=== PATIENT | female | born 1970 | race Caucasian/White ===

== ENCOUNTER 2018-03-23 09:10 | Day surgery (SDC) | payer BC, MEDICAID, SELFPAY ==
[~2018-03-23] VITALS: Ht 162.6 cm; Wt 72.7 kg
[2018-03-23 09:53] LABS: BASO # 0.1 10^3/uL (0.0-0.2); BASO % 0.3 % (0.0-1.0); EOS % 0.2 % (0.0-3.0); HEMATOCRIT 43.5 % (36.0-47.0); HEMOGLOBIN 15.2 g/dl (12.0-15.5); LYMPH # 2.5 10^3/uL (1.5-4.5); LYMPH % 9.6 % (24.0-44.0); MEAN CORPUSCULAR HEMOGLOBIN 33.9 pg (27.0-33.0); MEAN CORPUSCULAR HGB CONC 34.9 g/dl (32.0-36.5); MEAN CORPUSCULAR VOLUME 97.1 fl (80.0-96.0); MONO % 8.4 % (0.0-5.0); NEUTROPHILS # 21.2 10^3/uL (1.8-7.7); NEUTROPHILS % 80.9 % (36.0-66.0); PLATELET COUNT, AUTOMATED 284 10^3/uL (150-450); RED BLOOD COUNT 4.48 10^6/uL (4.00-5.40); WHITE BLOOD COUNT 26.2 10^3/uL (4.0-10.0)
[2018-03-23 10:13] LABS: BLOOD UREA NITROGEN 9 MG/DL (7-18); CALCIUM LEVEL 9.4 MG/DL (8.5-10.1); CARBON DIOXIDE LEVEL 27 MEQ/L (21-32); CHLORIDE LEVEL 100 MEQ/L (98-107); CREATININE FOR GFR 0.69 MG/DL (0.55-1.30); GLOMERULAR FILTRATION RATE > 60.0 (>58); GLUCOSE, FASTING 125 MG/DL (70-100); POTASSIUM SERUM 3.9 MEQ/L (3.5-5.1); SODIUM LEVEL 137 MEQ/L (136-145)
--- NOTE | 2018-03-23 10:21 | REP ---
Urinary tract sonogram: History: Flank pain. Comparison: None. Findings: Scanning at the level of the urinary bladder shows no abnormality. It is essentially empty at the time of scanning. Renal cortical echogenicity pattern is normal bilaterally and contours are smooth. There is no evidence of hydronephrosis, cyst, mass, or calculus in either kidney. The right kidney measures 11.4 x 5.0 x 3.8 cm. Left renal dimensions are 11.9 x 4.3 x 5.8 cm. Impression: Normal urinary tract sonography. Electronically Signed by Dileep Perea MD 03/23/2018 10:13 A
[2018-03-23] MEDS ORDERED: NS 500 ML IV ONE (10:30)
[2018-03-23] MEDS ORDERED: ONDANSETRON 4MG/2ML VIAL (J2405) IV ONE (10:30)
[2018-03-23] MEDS ORDERED: MORPHINE 4 MG/ML 1ML VIAL/SYRINGE (J2270) IV ONE (10:30)
[2018-03-23] MEDS ORDERED: ISOVUE-370 76% 100ML VIAL (Q9967) As Ordered ONE (10:35)
[2018-03-23 11:14] LABS: MONO # 2.2 10^3/uL (0.0-0.8)
[2018-03-23] MEDS ORDERED: CIPROFLOXACIN 400 MG in APPROPRIATE DILUENT 1 EA IV ONE (12:30)
[2018-03-23] MEDS ORDERED: metroNIDAZOLE 500 MG in APPROPRIATE DILUENT 1 EA IV ONE (12:30)
--- NOTE | 2018-03-23 13:35 | REP ---
CT abdomen and pelvis with IV but without oral contrast: History: Right lower quadrant pain. Rule out appendicitis. No comparison imaging. CT contrast dose: 100 mL of intravenous Isovue [address] findings: Preliminary digital principal java developer radiograph is unremarkable. The lung bases are clear. The liver and the spleen are normal in size homogeneous in texture. Gallbladder is unremarkable. No pancreatic abnormality is observed. Normal adrenal glands are seen. The kidneys enhance symmetrically are morphologically intact bilaterally. No evidence of intrarenal calculus or hydronephrosis. The renal arteries are duplicated bilaterally. Heavy vascular calcification is noted. No retroperitoneal mass or adenopathy is seen. Left colonic diverticulosis is seen without evidence of diverticulitis. No uterine, adnexal or bladder abnormality is observed. The appendix is abnormal however with a fairly large appendicolith just beyond its origin from the cecum. The appendicolith measures 10 mm in diameter. The appendix is dilated and fluid-filled and inflamed. It measures up to 2.1 cm in diameter. There is periappendiceal streaking, mural thickening, and a small quantity of pericolic gutter fluid in the right lower quadrant. No abscess or free air is seen. Impression: Acute appendicitis with appendicolith, fluid distended inflamed appendix, periappendiceal fluid, without evidence of abscess or free air. Left colonic diverticulosis. Electronically Signed by Dileep Perea MD 03/23/2018 05:22 P
[2018-03-23] MEDS ORDERED: METOCLOPRAMIDE INJ 10MG/2ML VIAL (J2765) As Ordered ONE (14:33)
[2018-03-23] MEDS ORDERED: ONDANSETRON 4MG/2ML VIAL (J2405) As Ordered ONE (14:33)
[2018-03-23] MEDS ORDERED: PROPOFOL 200 MG/20 ML VIAL As Ordered ONE (14:33)
[2018-03-23] MEDS ORDERED: ROCURONIUM BROMIDE 50 MG/5 ML VIAL As Ordered ONE (14:33)
[2018-03-23] MEDS ORDERED: fentaNYL 100 MCG/2 ML INJECTION (J3010) As Ordered ONE ×2 (14:33→16:20)
[2018-03-23] MEDS ORDERED: MIDAZOLAM INJ 2 MG/2 ML VIAL (J2250) As Ordered ONE (14:33)
[2018-03-23] MEDS ORDERED: LIDOCAINE 2% INJ 100 MG/5 ML SDV (FOR ANES.) As Ordered ONE (14:33)
[2018-03-23] MEDS ORDERED: BUPIVACAINE/EPIN 0.25% 30 ML VIAL As Ordered ONE (14:35)
[2018-03-23] MEDS ORDERED: dexameTHASONE 4 MG/ML 1ML VIAL (J1100) As Ordered ONE (15:57)
[2018-03-23] MEDS ORDERED: KETOROLAC 60 MG/2 ML VIAL (J1885) As Ordered ONE (16:26)
[2018-03-23] MEDS ORDERED: NEOSTIGMINE 10 MG/10 ML VIAL (J2710) As Ordered ONE (16:28)
[2018-03-23] MEDS ORDERED: GLYCOPYRROLATE INJ 0.2 MG/ML 2 ML VIAL As Ordered ONE (16:28)
[2018-03-23] MEDS ORDERED: METOCLOPRAMIDE INJ 10MG/2ML VIAL (J2765) IV PRN ×2 (16:45→17:00)
[2018-03-23] MEDS ORDERED: ONDANSETRON 4MG/2ML VIAL (J2405) IV PRN ×2 (16:45→17:00)
[2018-03-23] MEDS ORDERED: ACETAMINOPHEN TAB 650MG DOSE (2X325MG) PO PRN (16:45)
[2018-03-23] MEDS ORDERED: PROMETHAZINE INJ 25 MG/ML VIAL (J2550) IV PRN (16:45)
[2018-03-23] MEDS ORDERED: LR 1,000 ML IV SCH (17:00)
[2018-03-23] MEDS ORDERED: fentaNYL 100 MCG/2 ML INJECTION (J3010) IV PRN (17:00)
[2018-03-23] MEDS ORDERED: PERCOCET 5MG/325MG TAB PO PRN (17:00)
[2018-03-23] MEDS ORDERED: MEPERIDINE INJ 25 MG/ML VIAL (J2175) IV PRN (17:00)
[2018-03-23] MEDS: MORPHINE 4 MG/ML 1ML VIAL/SYRINGE (J2270) IV PRN (17:05)
[2018-03-23 18:00] VITALS: BP 143/64
[2018-03-23] MEDS: NS 1,000 ML IV SCH (18:05)
[2018-03-23 18:30] VITALS: BP 133/64
[2018-03-23 19:30] VITALS: BP 127/66
[2018-03-23 20:27] VITALS: BP 110/58
[2018-03-23 21:37] VITALS: BP 115/58
[2018-03-23] MEDS: metroNIDAZOLE 500 MG in APPROPRIATE DILUENT 1 EA IV SCH (21:43)
[2018-03-23 22:28] VITALS: BP 116/57
[2018-03-23] MEDS: NORCO, ANEXSIA 5/325MG TABLET (HYDROcodone/ACETAMINOPHEN) PO PRN (22:37)
[2018-03-24] MEDS: CIPROFLOXACIN 400 MG in APPROPRIATE DILUENT 1 EA IV SCH ×2 (00:13→12:39)
[2018-03-24] MEDS: KETOROLAC 30 MG/ML VIAL (J1885) IV SCH ×4 (00:13→18:14)
[2018-03-24 00:23] VITALS: BP 104/52
[2018-03-24] MEDS: NS 1,000 ML IV SCH ×3 (02:24→22:05)
[2018-03-24 04:13] VITALS: BP 112/59
[2018-03-24] MEDS: metroNIDAZOLE 500 MG in APPROPRIATE DILUENT 1 EA IV SCH ×3 (05:39→18:14)
[2018-03-24 08:00] VITALS: BP 110/56
[2018-03-24] MEDS: PANTOPRAZOLE 40MG TAB (PROTONIX) PO SCH (08:42)
--- NOTE | 2018-03-24 10:41 | RO ---
DATE OF PROCEDURE: 03/23/2018 PREOPERATIVE DIAGNOSIS: Acute appendicitis POSTOPERATIVE DIAGNOSIS: Acute appendicitis (localized perforation). PROCEDURE: Laparoscopic appendectomy. SURGEON: Esdras Gautam MD [employer] [place] [place]: ANESTHESIA: General endotracheal anesthesia. ESTIMATED BLOOD LOSS (EBL): Minimal. FLUIDS: Crystalloid. BRIEF PROCEDURE SUMMARY: The patient was taken to the operating room and was given general anesthesia. After adequate anesthesia and preoperative antibiotics were given, the patient was prepped and draped in the usual sterile fashion. Next, a supraumbilical incision was made with skin knife. Blunt dissection was carried down to fascia. Fascia was grasped with Esau clamps, elevated and a Veress needle placed into the abdominal cavity, insufflated to 15 mm pressure. A dilating 10 mm trocar was placed at this time and under direct visualization a suprapubic and left lower quadrant 5 mm trocars were placed and the appendix was seen on the right-hand side. There was some inflammatory changes and a little bit of purulent discharge in the pelvis, and thus, the cecum was grasped and moved medially and when doing this there was some purulent discharge and then some fecal on discharge. It was obvious there was a obvious perforation of the appendix in mid portion. At this point, the appendiceal base looked free and clear of inflammatory changes. Thus, the mesentery was opened at this site with Harmonic and then followed along the appendix distally with the Harmonic scalpel. The base of the appendix was transected using a CANDELARIA stapler, placed in an Endo Catch bag and brought out through the umbilicus. The pelvis, the right lower quadrant was copiously irrigated with multiple liters of fluid, and after I felt this was quite clean all trocars were removed under direct visualization. #0 Vicryl was used to close the fascia at the umbilicus and all incisions were closed with #4-0 Vicryl. Steri-Strips and a dry sterile dressing was applied. The patient was awakened, extubated and brought to the recovery room awake, alert, hemodynamically stable. Sponge and needle counts were correct times two.
--- NOTE | 2018-03-24 10:47 | HPE ---
DATE OF ADMISSION: 03/23/2018 CHIEF COMPLAINT: Acute appendicitis. BRIEF HISTORY OF PRESENT ILLNESS: Patient is a 47-year-old female, who has had a 2-day history of abdominal pain, discomfort and well localized to the right lower quadrant for the last 24-36 hours. It has gotten worse over the last day and she has had difficulty moving around. She has had some nausea without vomiting. No diarrhea, no constipation issues, but has been unable to eat because of anorexia issues. She has had this severe pain that has been persistent for a while now, came to the Urgent Care and then transferred here to the hospital for evaluation of acute appendicitis. Her white count was elevated to 26,000. She had right lower quadrant pain and tenderness and referred to the emergency room here where they underwent a CAT scan, which revealed acute appendicitis. Past medical history is significant for a history of wrist surgery as well as tubal ligation. Medications are none. ALLERGIES are NONE. Physical exam reveals a 47-year-old female, who looks stated age. HEENT is unremarkable. Neck: Supple without adenopathy. Lungs are clear to auscultation without crackles, wheezes or rhonchi. Heart is regular without murmur. Abdomen is soft, nondistended, but she is tender with guarding and rebound in the right lower quadrant and referred rebound in this area as well. Extremities are warm, well-perfused. IMPRESSION AND PLAN: Patient has acute appendicitis. At this point, there is not a significant amount of free fluid in the pelvis. There does not seem to be an abscess around the appendix; however, it is significantly inflamed and given the elevated white count I do feel that this is advanced acute appendicitis. At this point, we will plan on a laparoscopic appendectomy. Risks as well as benefits have been discussed with the patient at length, those including but not limited to infection, bleeding, damage to surrounding structures including bowel, bladder, nerve, vessels and possible need for open operative intervention. The patient understands and would like to proceed with this as soon as possible.
--- NOTE | 2018-03-24 10:50 | IPN ---
DATE: 03/24/2018 Patient overall has been doing well overnight. Has not had any complaints. No nausea. No vomiting. Has been tolerating a clear liquid diet and started on some minimal fluid this morning but not a lot. Has been afebrile overnight, although last night had a little bit of a temperature right after she came out of the operating room (OR). She has had good urine output and has had no complaints of diarrhea or constipation, and no nausea or vomiting. Overall is comfortable with the current pain medication regime. On her physical exam, her dressings are clean and dry. Her abdomen is nondistended. IMPRESSION AND PLAN: Patient seems to be doing well status post laparoscopic appendectomy. We will see how she does after lunch and if she is tolerating a regular diet will discharge her to home with instructions to followup in 2 weeks. Otherwise, if she is not tolerating a diet or if she is having fevers, again we may keep her overnight for another day and then discharge her to home tomorrow. She understands, and we will see how she is doing this afternoon.
[2018-03-24 12:00] VITALS: BP 120/58
[2018-03-24] MEDS: MORPHINE 4 MG/ML 1ML VIAL/SYRINGE (J2270) IV PRN (12:56)
[2018-03-24 16:00] VITALS: BP 110/59
[2018-03-24] MEDS: NORCO, ANEXSIA 5/325MG TABLET (HYDROcodone/ACETAMINOPHEN) PO PRN (16:41)
[2018-03-24 20:00] VITALS: BP 107/54
[2018-03-25] VITALS: BP 110/58
[2018-03-25] MEDS: KETOROLAC 30 MG/ML VIAL (J1885) IV SCH ×3 (00:43→12:00)
[2018-03-25] MEDS: CIPROFLOXACIN 400 MG in APPROPRIATE DILUENT 1 EA IV SCH ×2 (00:43→12:45)
[2018-03-25] MEDS: metroNIDAZOLE 500 MG in APPROPRIATE DILUENT 1 EA IV SCH ×2 (02:13→09:29)
[2018-03-25 04:00] VITALS: BP 120/55
[2018-03-25 08:00] VITALS: BP 125/58
[2018-03-25] MEDS: PANTOPRAZOLE 40MG TAB (PROTONIX) PO SCH (09:29)
[2018-03-25 12:20] VITALS: BP 123/64
[2018-03-25 12:24] LABS: BASO % 0.2 % (0.0-1.0); EOS # 0.1 10^3/uL (0.0-0.50); EOS % 0.5 % (0.0-3.0); HEMATOCRIT 31.5 % (36.0-47.0); LYMPH # 1.3 10^3/uL (1.5-4.5); LYMPH % 7.5 % (24.0-44.0); MEAN CORPUSCULAR HEMOGLOBIN 34.3 pg (27.0-33.0); MEAN CORPUSCULAR HGB CONC 34.9 g/dl (32.0-36.5); MEAN CORPUSCULAR VOLUME 98.1 fl (80.0-96.0); MONO # 1.1 10^3/uL (0.0-0.8); MONO % 6.4 % (0.0-5.0); NEUTROPHILS # 14.3 10^3/uL (1.8-7.7); NEUTROPHILS % 84.7 % (36.0-66.0); PLATELET COUNT, AUTOMATED 207 10^3/uL (150-450); RED BLOOD COUNT 3.21 10^6/uL (4.00-5.40); WHITE BLOOD COUNT 16.9 10^3/uL (4.0-10.0)
[2018-03-25 12:47] LABS: BLOOD UREA NITROGEN 8 MG/DL (7-18); CALCIUM LEVEL 7.8 MG/DL (8.5-10.1); CARBON DIOXIDE LEVEL 25 MEQ/L (21-32); CHLORIDE LEVEL 99 MEQ/L (98-107); GLOMERULAR FILTRATION RATE > 60.0 (>58); GLUCOSE, FASTING 100 MG/DL (70-100); SODIUM LEVEL 132 MEQ/L (136-145)
[2018-03-25] MEDS ORDERED: CIPR500T3 PO (13:28)
[2018-03-25] MEDS ORDERED: FLAG500T PO (13:28)
--- NOTE | 2018-03-25 13:44 | IPN ---
DATE: 03/25/2018 HISTORY: The patient is now postop day 2 from laparoscopic appendectomy for a perforated appendicitis. This was done by Dr. Gautam. She has been on ciprofloxacin and Flagyl in the hospital. She had no labs yesterday but had a CBC today that shows a white count of 17,000 with 85% neutrophils, 7% lymphocytes, 6% monocytes. Vital signs show that she has had a low grade temperature this morning up to maximum 99.9. Her pulse has been running in the 100-125 range today, which is up from the 80s to 90s yesterday. She has not been taking any pain medications. Intake and output yesterday: She had 5500 in with 600 recorded out though I suspect that her urine output was higher than what was recorded. Today her urine output has been over a liter so far. Physical examination reveals a pleasant woman lying quietly on the hospital bed. She is alert and oriented. Her heart rate is in the 92-100 range and regular. Lungs are clear. The abdomen is mildly protuberant. She has some bowel sounds present. She has dressings on three small incisions in the lower abdomen. There is no tenderness to percussion. There is no undue tenderness to palpation. There is no evidence of redness around her incisions. Laboratory studies as noted showed a white count of 17,000 with 85% neutrophils. Her basic medical profile showed a sodium of 132, otherwise normal electrolytes with a glucose of 100. IMPRESSION: The patient is now 2 days postop from laparoscopic appendectomy for perforated appendicitis. She still has a elevated white blood cell count with a significant left shift. She has had a low grade temperature but otherwise reports that she is feeling well. PLAN: I have recommended to the patient that she remain in the hospital and continue her IV antibiotics. She indicates that she feels well and she wishes to go home. I advised her that there is a chance that she will develop an abscess or may already be developing an abscess related to her perforation and she reports that she understands this possibility. I advised her that even with the antibiotics, this may not be prevented and she would then need further treatment. Again she seems to understand this possibility, but feels that she will be better at home. I counseled her that we will continue her on antibiotics with ciprofloxacin and Flagyl. She will need to call for an appointment with Dr. Gautam in about a week for followup. I advised her that if she develops a fever or chills or has increasing abdominal pain or develops nausea or vomiting or sees redness around her wounds that she should certainly contact our office or return to the emergency department for followup. It is certainly possible that she will develop an abscess and require further treatment. She appears to understand this risk and agrees to return if she notes any developing problems. I otherwise counseled her to avoid any strenuous physical activity. She can shower as desired and should remove the small dressings from her incisions in about 5 days after surgery. She can take [id number] pain medications as necessary. JORDYN
== END 2018-03-25 15:40 | disposition home or self-care (01) ==
LOC: M ED 09:10 → M SDC 12:00 → M PED 17:55 → M SDC 03-25 15:40
PROVIDERS: ATTEND Surgery
DX: K35.32 Acute appendicitis with perforation, localized peritonitis, and gangrene, without abscess (principal); Z88.0 Allergy status to penicillin; Z72.0 Tobacco use; Z98.51 Tubal ligation status
CPT/HCPCS: 36415; 44970; 74177; 76775; 80048; 81001; 85025; 88304; 96365; 96366; 96374; 96375; 96376; 99284; J0744; J1100; J1885; J2250; J2270; J2405; J2710; J2765; J3010; Q9967

== ENCOUNTER → 2019-02-06 | Outpatient (REF) | payer OTHER ==
[~2019-02-06] MED LIST: CIPR500T3 PO; FLAG500T PO
[2019-02-06 13:22] LABS: BASO # 0.1 10^3/uL (0.0-0.2); BASO % 0.6 % (0.0-1.0); EOS # 0.3 10^3/uL (0.0-0.5); EOS % 2.7 % (0.0-3.0); HEMOGLOBIN 15.4 g/dl (12.0-15.5); LYMPH # 3.1 10^3/uL (1.5-5.0); LYMPH % 30.5 % (24.0-44.0); MEAN CORPUSCULAR HEMOGLOBIN 33.8 pg (27.0-33.0); MEAN CORPUSCULAR HGB CONC 32.1 g/dl (32.0-36.5); MEAN CORPUSCULAR VOLUME 105.5 fl (80.0-96.0); MONO # 0.8 10^3/uL (0.0-0.8); MONO % 7.5 % (0.0-5.0); NEUTROPHILS % 58.4 % (36.0-66.0); PLATELET COUNT, AUTOMATED 270 10^3/uL (150-450); RED BLOOD COUNT 4.55 10^6/uL (4.00-5.40); WHITE BLOOD COUNT 10.2 10^3/uL (4.0-10.0)
[2019-02-06 14:10] LABS: ALT/SGPT 14 U/L (12-78); BILIRUBIN,TOTAL 0.3 MG/DL (0.2-1.0); BLOOD UREA NITROGEN 12 MG/DL (7-18); CALCIUM LEVEL 9.5 MG/DL (8.5-10.1); CARBON DIOXIDE LEVEL 28 MEQ/L (21-32); CHLORIDE LEVEL 105 MEQ/L (98-107); CHOLESTEROL LEVEL 302 MG/DL (<200); CHOLESTEROL RISK RATIO 4.081 (<5); CREATININE FOR GFR 0.75 MG/DL (0.55-1.30); GLOMERULAR FILTRATION RATE > 60.0 (>58); GLUCOSE, FASTING 92 MG/DL (70-100); HDL CHOLESTEROL 74 MG/DL (>40); LDL CHOLESTEROL 202 MG/DL (<100); NON-HDL-C 228 MG/DL; POTASSIUM SERUM 4.1 MEQ/L (3.5-5.1); SODIUM LEVEL 139 MEQ/L (136-145); THYROID STIMULATING HORMONE 0.883 uIU/ML (0.358-3.740); TOTAL PROTEIN 7.3 GM/DL (6.4-8.2); TRIGLYCERIDES LEVEL 132 MG/DL (<150)
== END ==
LOC: M SFHCADAM 10:10
PROVIDERS: ATTEND Family Medicine
DX: Z00.00 Encounter for general adult medical examination without abnormal findings (principal)

== ENCOUNTER → 2019-03-12 | Outpatient (REF) | payer OTHER ==
[2019-03-12 17:38] LABS: FOLATE 11.5 NG/ML; TOTAL 25(OH) VITAMIN D 24.6 NG/ML (30.0-100.0)
== END ==
LOC: M SFHCADAM 14:56
PROVIDERS: ATTEND Family Medicine
DX: D75.89 Other specified diseases of blood and blood-forming organs (principal); R53.83 Other fatigue

== ENCOUNTER → 2019-03-30 | Outpatient (CLI) | payer OTHER ==
--- NOTE | 2019-03-30 11:29 | REP ---
BILATERAL MAMMOGRAM WITH 3D TOMOSYNTHESIS, LEFT AXILLARY ULTRASOUND: CLINICAL HISTORY: Left axillary pain. No palpable lump. Family history of breast cancer in mother and paternal aunt. [facility] lifetime risk of breast cancer 23.9%. COMPARISON: 01/22/2014 and 11/29/2012. Bilateral mammogram performed in the MLO and CC projections with 3D tomosynthesis. Mild scattered fibroglandular tissue appears unchanged since the prior studies with no new mass. There are no clustered microcalcifications. Normal appearing axillary lymph nodes are present. Real-time sonographic evaluation of the left axillary region performed. There appear to be two morphologically normal lymph nodes in the left axillary region, both demonstrating fatty anson. Short axis dimension of each is 7 and 9 mm. No other cyst is or solid nodule is seen. IMPRESSION: BIRADS 2: BI-RADS/ACR category 2 mammogram. Benign Findings. ACR 2 benign. No suspicious mass or clustered microcalcifications. In the region of the left axillary pain two normal-appearing lymph nodes are seen. Given the patient's elevated lifetime risk of breast cancer of 23.9%, I would recommend supplemental screening MRI of the breasts in 6 months. This mammogram was interpreted with the aid of an FDA-approved computer-aided detection system. A. Negative x-ray reports should not delay biopsy if a dominant or clinically suspicious mass is present. B. Four to eight percent of cancers are not identified by x-ray. C. Adenosis and dense breasts may obscure an underlying neoplasm. The patient states she/he had a clinical breast exam in January 2019. The patient letter being requested is M2 Electronically Signed by Luke Ramirez MD 03/30/2019 12:57 P
== END ==
LOC: M RAD 08:58
PROVIDERS: ATTEND Family Medicine
DX: M79.622 Pain in left upper arm (principal); Z80.3 Family history of malignant neoplasm of breast
CPT/HCPCS: 76642; 77066; G0279

== ENCOUNTER 2020-09-13 00:56 | Emergency (ER) | payer OTHER, SELFPAY ==
[~2020-09-13] VITALS: Ht 162.6 cm; Wt 90.0 kg
[2020-09-13] MEDS ORDERED: KETOROLAC 30 MG/ML 1ML VIAL IV ONE (03:55)
--- NOTE | 2020-09-13 04:05 | REPVR ---
PROCEDURE INFORMATION: Exam: XR Left Ankle Exam date and time: 09/13/2020 2:06 AM Age: 49 years old Clinical indication: Other: Fall TECHNIQUE: Imaging protocol: XR Left ankle. Views: 3 or more views. COMPARISON: No relevant prior studies available. FINDINGS: Bones/joints: There is an oblique fracture of the distal fibula, beginning at approximately the ankle joint line. There are a few mm of posterior displacement of the distal fragment relative to the proximal fibula. There is a fracture of the distal tibia involving the medial malleolus, with a minimally displaced, predominantly vertical fracture. A small fracture fragment seen posteriorly on the lateral view may be an additional posterior tibial fracture or may be a component of the fracture that involves the medial malleolus. The ankle mortise is grossly symmetric. There is a plantar calcaneal spur. Soft tissues: There is circumferential soft tissue swelling. IMPRESSION: Fractures of the medial and lateral malleolus and possibly a small fracture involving the posterior aspect of the distal tibia as well. Electronically signed by: Pooja Danielson On 09/13/2020 04:04:23 AM
[2020-09-13] MEDS ORDERED: IBUP-1022 PO (05:49)
[2020-09-13 07:04] VITALS: BP 158/64
== END 2020-09-13 07:06 | disposition home or self-care (01) ==
LOC: M ED 00:56
DX: S82.845A Nondisplaced bimalleolar fracture of left lower leg, initial encounter for closed fracture (principal); W19.XXXA Unspecified fall, initial encounter; Y92.019 Unspecified place in single-family (private) house as the place of occurrence of the external cause; Y93.9 Activity, unspecified; Y99.8 Other external cause status; F10.120 Alcohol abuse with intoxication, uncomplicated; F17.200 Nicotine dependence, unspecified, uncomplicated; Z88.0 Allergy status to penicillin

== ENCOUNTER → 2020-09-22 | Outpatient (CLI) | payer MEDICAID ==
[~2020-09-22] MED LIST changes: +IBUP-1022 PO; +TYLE650T38 PO
--- NOTE | 2020-09-22 08:29 | REP ---
INDICATION: LT ANKLE DISPLACED FX. COMPARISON: X-ray 09/13/2020 TECHNIQUE: Axial soft tissue and bone windows with both coronal and sagittal bone window reconstructions provided through the ankle and hindfoot. Cast material overlies. FINDINGS: Vertically oriented oblique horizontal fractures of the posterior aspect of the medial malleolus coursing into the posterior malleolus transversely. Is only mildly distracted. Does have articular communication to the posteromedial aspect of the mortise joint. There is a transverse oblique fracture through the distal fibular metaphysis communicating to the posterolateral mortise joint. There are few small the fragments adjacent to the fracture site and 1 or 2 in the lateral anteromedial of the mortise joint. There is distraction of the distal major fragment of the fibula up to 3.7 mm with 1/4 shaft with posterior displacement. No other fractures the talus is without a talar dome osteochondral defect. Calcaneus is unremarkable. There is a plantar calcaneal spur. Subtalar joints, tarsal bones and their articulations were all intact.. IMPRESSION: 1. Mildly comminuted distal medial malleolar fracture transverse oblique and communicating to the anteromedial corner of the lateral aspect of the ankle mortise joint couple small ossific fragments appear to be intra-articular. 2. Medial malleolar fracture extending transverse fashion along the posterior aspect of the distal tibia as well. No other significant finding <Electronically signed by Steve Armenta > 09/22/20 [id number]
== END ==
LOC: M RAD 07:14
PROVIDERS: ATTEND Orthopaedic Surgery Sports Medicine
DX: S82.842A Displaced bimalleolar fracture of left lower leg, initial encounter for closed fracture (principal); X58.XXXA Exposure to other specified factors, initial encounter; Y92.9 Unspecified place or not applicable

== ENCOUNTER 2020-09-24 10:35 | Day surgery (SDC) | payer MEDICAID ==
[~2020-09-24] VITALS: Ht 162.6 cm; Wt 58.1 kg
[~2020-09-24 10:35] MED LIST changes: +CLINDAMYCIN 600 MG in IV 1 EA IV ONE; +LIDOCAINE 1% MDV 20ML VIAL SQ PRN; +LR 1,000 ML IV ONE
[2020-09-24] MEDS ORDERED: LIDOCAINE 2% 100MG/5ML SDV (FOR ANES.) As Ordered ONE (10:44)
[2020-09-24] MEDS ORDERED: propofoL 200 MG/20 ML VIAL As Ordered ONE (10:44)
[2020-09-24] MEDS ORDERED: MIDAZOLAM INJ 2MG/2ML VIAL (J2250 PER 1MG) As Ordered ONE (10:44)
[2020-09-24] MEDS ORDERED: dexameTHASONE 4 MG/ML 1ML VIAL (J1100 PER 1MG) As Ordered ONE (10:44)
[2020-09-24] MEDS ORDERED: ONDANSETRON 4MG/2ML VIAL As Ordered ONE (10:44)
[2020-09-24] MEDS ORDERED: fentaNYL 100 MCG/2 ML INJECTION (J3010) As Ordered ONE (10:44)
--- NOTE | 2020-09-24 13:10 | REP ---
INDICATION: LEFT ANKLE FRACTURE. COMPARISON: Comparison radiographs of the left ankle are from September 13, 2020.. TECHNIQUE: Three views. 38.8 seconds of fluoroscopy time is reported. FINDINGS: A a sequence of 3 last image hold fluoroscopically obtained spot radiographs of the left ankle document open reduction internal fixation of left ankle fracture. Screw plate fixation device in the distal fibula. IMPRESSION: Procedural imaging. <Electronically signed by Diogo Perea > 09/24/20 [id number]
[2020-09-24] MEDS ORDERED: ONDANSETRON 4MG/2ML VIAL IV PRN ×2 (13:20→13:30)
[2020-09-24] MEDS ORDERED: oxyCODONE 5MG TAB PO PRN (13:20)
[2020-09-24] MEDS ORDERED: fentaNYL 100 MCG/2 ML INJECTION (J3010) IV PRN (13:20)
[2020-09-24] MEDS ORDERED: LR 1,000 ML IV SCH ×2 (13:20)
[2020-09-24] MEDS ORDERED: PERCOCET 5MG/325MG TAB PO PRN (13:25)
[2020-09-24] MEDS ORDERED: MORPHINE 2 MG/ML 1ML VIAL (J2270) IV PRN (13:25)
[2020-09-24] MEDS ORDERED: ACETAMINOPHEN TAB 650MG DOSE (2X325MG) PO PRN (13:25)
--- NOTE | 2020-09-24 13:28 | ROOPDOC ---
[facility] Report Of Operation Report of Operation DATE OF PROCEDURE: 09/24/20 PREPROCEDURE DIAGNOSES: Left ankle fracture. POSTPROCEDURE DIAGNOSES: Same. PROCEDURE PERFORMED: Left ankle open reduction internal fixation. SURGEON: Dr. Estefany English MD [employer] CARR[employer] OUT: ANESTHESIA: Spinal anesthetic Dr Guevara. ESTIMATED BLOOD LOSS: Approximately 50 mL. COMPLICATIONS: None. REMARKS: FINDINGS: Left ankle fracture SPECIMENS REMOVED: None PROCEDURE NOTE: This 49-year-old female sustained an unstable bimalleolar ankle fracture. We discussed the pros and cons risks and benefits of nonsurgical versus surgical management. She wished to go ahead. I marked the left lower extremity and proceeded to surgery. She had no further questions. DESCRIPTION OF PROCEDURE: The patient was brought to the operating theater. They are ministered clindamycin 600 mg IV for penicillin allergy and for surgical prophylaxis. The patient was administered spinal anesthetic. They are placed supine on the operating room table. Bump under the left hip 34 inch tourniquet applied appropriately padded. Bone foam leg positioner was used. All bony prominences padded. Sequential device on the opposite leg. Limb was prepped and draped in the usual sterile fashion allowing over 3 minutes drying time prior to draping (chlorhexidine-based prep solution). Preoperative timeout was performed to confirm the site patient and surgery. Began by elevating the limb inflating the tourniquet to 250 mmHg. I made a standard lateral incision over the distal aspect of fibula. I carried the dissection down through skin and subcutaneous tissue achieve meticulous hemostasis. Identified the fracture. I cleared away any interposed fracture hematoma and periosteum. I achieved preliminary reduction with pointed reduction forceps. I placed a 2.7 mm fully threaded cortical lag screw across t he fracture countersinking proximally. I drilled from proximal anteriorly to distal posteriorly. This achieved good compression of the fracture site. I then precontoured an 8 hole one third tubular plate placed this on the lateral side of the cortex. I used 4 fully threaded cortical screws proximally as well as two 4.0 mm fully threaded cancellous screws distally. I then performed a syndesmosis stress test with the foot in external rotation at neutral as well as a cotton test. Syndesmosis did appear slightly unstable. The posterior medial distal tibia fracture was congruent. Due to the fracture location at the posterior inferior tibiofibular ligament as well as slight syndesmosis widening elected to put one fully threaded 3.5 mm cortical screw across all 4 cortices at the syndesmosis for fixation of the syndesmosis. I ensured to not over tighten this and had the foot in neutral when placing the screw. Unable to place 2 screws due to lag screw location. Final radiographs were taken AP lateral mortise confirm proper and anatomic reduction. These were saved onto the system. Case terminated. Tourniquet let down. Meticulous hemostasis achieved. Subcutaneous tissue irrigated with normal saline. Subcutaneous tissue closed with interrupted 2-0 Vicryl sutures and skin with running 3-0 Monocryl followed by cleansing the skin with wet and dry dressing and Steri-Strip application. Adaptic 4 by 4 gauze abdominal pad dressing and then sterile cast padding placed in a below-knee circumferential fashion with a 3 sided plaster Samantha splint overwrapped with 6 inch Morris bandages allowed to fully harden with the foot in neutral. Patient was transferred off the operating table taken postanesthetic care unit in stable condition. All sponge needle instrument counts correct no complications estimated blood loss 50 cc. Plan for the patient nonweightbearing for 6 weeks follow-up in the office 2 weeks time be discharged home according to when they are comfortable and safe mobilizing with crutches. Rest elevate ice the foot as well as pain prescription has been sent into their pharmacy of choice electronically [facility] [address]. Postoperative wound instructions were given. It was recommended to keep the wound clean and dry. Dressing changes as needed. It was reinforced with the patient that they should call us or be seen immediately for redness, drainage, or fever. Risk factors for harms from taking opioid medications discussed and assessed including but not limited to personal or family history of substance use diso rder, anxiety or depression, , age 65 or older, COPD or other underlying respiratory conditions, and renal or hepatic insufficiency. Discussed with patient concerns and determined any harms they may experience or be currently experiencing such as nausea or constipation, feeling sedated or confused, breathing interruptions during sleep, or taking or craving more opioids than prescribed or difficulty controlling use (addiction). Discussed early warning signs of overdose including confusion, sedation, slurred speech, abnormal gait. ESTEFANY ENGLISH MD Sep 24, 2020 13:27
[2020-09-24 15:35] VITALS: BP 172/81
== END 2020-09-24 15:50 | disposition home or self-care (01) ==
LOC: M SDC 10:35
PROVIDERS: ATTEND Orthopaedic Surgery Sports Medicine
DX: S82.842A Displaced bimalleolar fracture of left lower leg, initial encounter for closed fracture (principal); X58.XXXA Exposure to other specified factors, initial encounter; Y92.89 Other specified places as the place of occurrence of the external cause; Y93.9 Activity, unspecified; Y99.9 Unspecified external cause status; Z88.0 Allergy status to penicillin; F17.218 Nicotine dependence, cigarettes, with other nicotine-induced disorders
CPT/HCPCS: 27814; 76000; 87798; C1713; J1100; J2250; J2405; J3010

== ENCOUNTER → 2020-10-07 | Outpatient (CLI) | payer MEDICAID ==
[~2020-10-07] MED LIST changes: -CLINDAMYCIN 600 MG in IV 1 EA IV ONE; -LIDOCAINE 1% MDV 20ML VIAL SQ PRN; -LR 1,000 ML IV ONE
--- NOTE | 2020-10-07 15:59 | REP ---
INDICATION: ORTHO AFTERCARE. COMPARISON: None. TECHNIQUE: Three views FINDINGS: Postoperative changes after internal fixation trimalleolar ankle fracture. Hardware in satisfactory positions. Alignment normal. IMPRESSION: Normal postoperative changes. <Electronically signed by Raulito Chavis > 10/07/20 [id number]
== END ==
LOC: M SOG 15:29
PROVIDERS: ATTEND Orthopaedic Surgery Sports Medicine
DX: Z47.89 Encounter for other orthopedic aftercare (principal); Z87.81 Personal history of (healed) traumatic fracture

== ENCOUNTER → 2020-11-07 | Outpatient (CLI) | payer MEDICAID ==
--- NOTE | 2020-11-07 12:15 | REP ---
INDICATION: LT ANKLE FX. COMPARISON: 10/07/2020 TECHNIQUE: Three views FINDINGS: There is no evidence of an acute fracture or destructive osseous lesion. The mortise is within normal limits. There is no significant change from the prior exam. Status post ORIF with internal fixation plate and screws. IMPRESSION: No significant change <Electronically signed by Chele Sheridan > 11/07/20 [id number]
== END ==
LOC: M SOG 11:50
PROVIDERS: ATTEND Orthopaedic Surgery Sports Medicine
DX: S82.842D Displaced bimalleolar fracture of left lower leg, subsequent encounter for closed fracture with routine healing (principal); X58.XXXD Exposure to other specified factors, subsequent encounter; Y92.9 Unspecified place or not applicable; Y93.9 Activity, unspecified; Y99.9 Unspecified external cause status

== ENCOUNTER → 2021-03-23 | Outpatient (CLI) | payer OTHER | LOC: M SOG 08:38 | PROVIDERS: ATTEND Orthopaedic Surgery Sports Medicine | DX: Z47.89 Encounter for other orthopedic aftercare (principal) ==

== ENCOUNTER → 2022-10-04 | Outpatient (CLI) | payer OTHER ==
[2022-10-04 18:43] LABS: HEMATOCRIT 41.3 % (36.0-47.0); MEAN CORPUSCULAR HGB CONC 33.9 g/dl (32.0-36.5); MEAN CORPUSCULAR VOLUME 100.2 fl (80.0-96.0); PLATELET COUNT, AUTOMATED 257 10^3/uL (150-450); RED BLOOD COUNT 4.12 10^6/uL (4.00-5.40); WHITE BLOOD COUNT 10.4 10^3/uL (4.0-10.0)
[2022-10-04 18:57] LABS: ERYTHROCYTE SEDIMENTATION RATE 26 mm/hr (0-30)
[2022-10-04 19:11] LABS: ALBUMIN 3.9 G/DL (3.2-5.2); ALKALINE PHOSPHATASE 64 U/L (46-116); ALT/SGPT 12 U/L (7.0-40); AST/SGOT 12 U/L (<34); BILIRUBIN,TOTAL 0.3 MG/DL (0.3-1.2); BLOOD UREA NITROGEN 12 MG/DL (9-23); CALCIUM LEVEL 9.3 MG/DL (8.5-10.1); CARBON DIOXIDE LEVEL 27 MMOL/L (20-31); CHLORIDE LEVEL 102 MMOL/L (98-107); CREATININE FOR GFR 0.71 MG/DL (0.55-1.30); GLOMERULAR FILTRATION RATE > 60.0 (>51); GLUCOSE, FASTING 95 MG/DL (60-100); POTASSIUM SERUM 3.7 MMOL/L (3.5-5.1); SODIUM LEVEL 139 MMOL/L (136-145); TOTAL PROTEIN 6.8 G/DL (5.7-8.2)
[2022-10-04 19:14] LABS: FREE T4 1.22 NG/DL (0.89-1.76)
[2022-10-04 19:15] LABS: THYROID STIMULATING HORMONE 2.032 uIU/ML (0.55-4.78)
== END ==
LOC: M LAB 17:15
PROVIDERS: ATTEND Nurse Practitioner Family
DX: R21 Rash and other nonspecific skin eruption (principal)

== ENCOUNTER → 2023-02-04 | Outpatient (CLI) | payer OTHER | LOC: M RAD 14:29 | PROVIDERS: ATTEND Family Medicine | DX: Z12.2 Encounter for screening for malignant neoplasm of respiratory organs (principal); Z87.891 Personal history of nicotine dependence; R91.1 Solitary pulmonary nodule ==

== ENCOUNTER → 2023-07-12 | Outpatient (CLI) | payer OTHER | LOC: M SOG 07:50 | PROVIDERS: ATTEND Physician Assistant | DX: M79.645 Pain in left finger(s) (principal) ==

== ENCOUNTER → 2024-05-09 | Outpatient (CLI) | payer BC, OTHER, SELFPAY | LOC: M WHC 15:55 | PROVIDERS: ATTEND Family Medicine | DX: Z12.31 Encounter for screening mammogram for malignant neoplasm of breast (principal) ==